=== PATIENT | female | born 1995 | race African-American/Black ===

== ENCOUNTER 2022-08-14 03:00 | Emergency (ER) | payer OTHER, MEDICARE, MEDICAID ==
[~2022-08-14] VITALS: Ht 170.2 cm; Wt 75.0 kg
[2022-08-14 03:21] VITALS: BP 123/50
== END 2022-08-14 04:31 | disposition home or self-care (01) ==
LOC: ER 03:00
DX: Z30.09 Encounter for other general counseling and advice on contraception (principal)
CPT/HCPCS: 99281